=== PATIENT | female | born 1990 | race Caucasian/White ===

== ENCOUNTER 2021-03-28 20:38 | Emergency (ER) | payer OTHER ==
[~2021-03-28] VITALS: Ht 170.2 cm; Wt 61.2 kg
[2021-03-28 21:35] LABS: URINE BILIRUBIN NEGATIVE (Negative); URINE BLOOD 1+ (Negative); URINE CLARITY CLEAR; URINE COLOR YELLOW; URINE GLUCOSE-RANDOM* NEGATIVE (Negative); URINE KETONES TRACE (Negative); URINE LEUKOCYTES-REFLEX NEGATIVE (Negative); URINE NITRITE-REFLEX NEGATIVE (Negative); URINE PROTEIN (DIPSTICK) 2+ (Negative); URINE SPECIFIC GRAVITY >= 1.030 (1.005-1.035); URINE UROBILINOGEN 0.2 E.U./dl (0.2-1.0)
[2021-03-28 21:42] LABS: AMP/METHAMP Negative (Negative); BARBITURATES Negative (Negative); BENZODIAZEPINES Negative (Negative); COCAINE Negative (Negative); METHADONE Negative (Negative); OPIATES Negative (Negative); PCP Negative (Negative)
[2021-03-28 21:43] LABS: SQUAMOUS 0-3 Few /LPF (0-3)
[2021-03-28 21:44] LABS: BACTERIA-REFLEX 1-9 Few /HPF (None Seen); CRYSTALS None Seen /LPF (None Seen); HYALINE CASTS 4-10 Moderate /LPF (None Seen); URINE RBC 3-10 Few /HPF (NONE SEEN); URINE WBC-REFLEX 6-15 Few /HPF (0-5)
[2021-03-28 21:59] LABS: ABSOLUTE NEUTROPHILS 2.2 thou/uL (1.4-8.2); BASOPHILS 0.7 % (0.0-2.0); EOSINOPHILS 0.3 % (0.0-3.0); HEMATOCRIT 34.9 % (37.0-47.0); HEMOGLOBIN 11.4 gm/dL (12.0-15.0); LYMPHOCYTES 15.8 % (24.0-44.0); MCH 29.8 pg (26.0-34.0); MCHC 32.6 g/dL (28.0-37.0); MCV 91.3 fL (80.0-100.0); PLATELET COUNT 160 thou/uL (150-400); POLYS 70.2 % (36.0-66.0); RBC 3.82 mil/uL (4.20-5.00); RDW 20.5 % (10.5-14.5); WBC 3.1 thou/uL (4.0-11.0)
[2021-03-28 22:12] LABS: CALCIUM 9.2 mg/dL (8.5-10.1); CREATININE 0.8 mg/dL (0.6-1.0); POTASSIUM 4.2 mmol/L (3.5-5.1)
[2021-03-28 22:18] VITALS: BP 178/122
[2021-03-28 22:18] LABS: ALBUMIN 4.1 g/dL (3.4-5.0); DIRECT BILIRUBIN 0.1 mg/dL (<0.1-0.2); TOTAL BILIRUBIN 0.9 mg/dL (0.2-1.0); TOTAL PROTEIN 7.5 g/dL (6.4-8.2)
== END 2021-03-28 23:05 | disposition home or self-care (01) ==
LOC: ER 20:38
PROVIDERS: Emergency Medicine
DX: R56.9 Unspecified convulsions (principal); R10.9 Unspecified abdominal pain; R51.9 Headache, unspecified

== ENCOUNTER 2021-04-02 17:05 | Inpatient (IN) | payer OTHER ==
[~2021-04-02] VITALS: Ht 170.2 cm; Wt 64.9 kg
[2021-04-02 17:12] VITALS: BP 133/93
[2021-04-02 17:33] LABS: ABSOLUTE NEUTROPHILS 1.4 thou/uL (1.4-8.2); BASOPHILS 1.6 % (0.0-2.0); EOSINOPHILS 0.5 % (0.0-3.0); HEMATOCRIT 33.3 % (37.0-47.0); HEMOGLOBIN 10.7 gm/dL (12.0-15.0); LYMPHOCYTES 45.6 % (24.0-44.0); MCHC 32.2 g/dL (28.0-37.0); MCV 92.9 fL (80.0-100.0); MONOCYTES 9.1 % (1.0-8.0); PLATELET COUNT 164 thou/uL (150-400); POLYS 43.2 % (36.0-66.0); RBC 3.58 mil/uL (4.20-5.00); RDW 21.7 % (10.5-14.5); WBC 3.3 thou/uL (4.0-11.0)
[2021-04-02 17:43] LABS: CALCIUM 7.9 mg/dL (8.5-10.1); CREATININE 0.8 mg/dL (0.6-1.0); POTASSIUM 3.5 mmol/L (3.5-5.1)
[2021-04-02 17:48] LABS: ALBUMIN 3.6 g/dL (3.4-5.0); TOTAL BILIRUBIN 0.2 mg/dL (0.2-1.0); TOTAL PROTEIN 7.1 g/dL (6.4-8.2)
[2021-04-02 20:02] LABS: SALICYLATE < 2.8 mg/dL (2.8-20.0)
[2021-04-02 23:16] VITALS: BP 109/53
[2021-04-02 23:37] VITALS: BP 143/96
[2021-04-03] VITALS: BP 140/101
[2021-04-03 00:57] LABS: PHOSPHORUS 3.5 mg/dL (2.6-4.7)
[2021-04-03 01:50] LABS: AMP/METHAMP Negative (Negative); BARBITURATES Negative (Negative); BENZODIAZEPINES Negative (Negative); COCAINE Negative (Negative); METHADONE Negative (Negative); OPIATES Negative (Negative); PCP Negative (Negative)
[2021-04-03 03:52] VITALS: BP 98/59
--- NOTE | 2021-04-03 04:17 | NUR ---
ASSUMED CARE OF PATIENT FROM ER. PATIENT REMAINS OBTUNDED, UNRESPONSIVE. ADMISSION COMPLETED WITH LIMITED INFORMATION. CONTINUOUS O2 SAT MONITOR PLACED, PATIENT DESATS OCCASIONALLY. WILL RECOVER WITH STERNAL RUB AND ORAL SUCTIONING. POC GOALS ESTABLISHED, NOT PROGRESSING AT THIS TIME.
[2021-04-03 06:13] LABS: HEMATOCRIT 31.7 % (37.0-47.0); HEMOGLOBIN 10.3 gm/dL (12.0-15.0); MCH 30.6 pg (26.0-34.0); MCHC 32.4 g/dL (28.0-37.0); MCV 94.3 fL (80.0-100.0); RBC 3.36 mil/uL (4.20-5.00); RDW 21.6 % (10.5-14.5); WBC 5.6 thou/uL (4.0-11.0)
[2021-04-03 06:44] LABS: CALCIUM 7.1 mg/dL (8.5-10.1); CREATININE 0.6 mg/dL (0.6-1.0); POTASSIUM 3.4 mmol/L (3.5-5.1)
[2021-04-03 07:03] LABS: FOLIC ACID 6.8 ng/mL (8.6-58.9)
[2021-04-03 07:27] VITALS: BP 111/68
[2021-04-03 10:59] VITALS: BP 144/98
--- NOTE | 2021-04-03 14:02 | NUR ---
INITIAL ASSESSMENT: SW reviewed chart and spoke with nursing and attending physician. Pt was admitted from home due to ETOH intoxication. Pt with ETOH level of 787 upon admission. Pt with hx if consuming vodka. Per chart, pt was found in the yard of a neighbor's home. Pt was recently at [facility] ER on 03/28 for seizures. . SW attempted to meet with pt at bedside earlier today. Pt was lethargic and unable to stay awake for conversation. Psych consulted to evaluate pt. 1:1 sitter placed due to possible SI. SW will follow up with pt at a later time to assess and assist as needed with discharge planning.
[2021-04-03 16:16] VITALS: BP 151/101
--- NOTE | 2021-04-03 16:32 | NUR ---
PT ALERT AND ORIENTED TIMES FOUR. VSS. SR ON TELE. SARAH TO DD. PT DENIES PAIN/SOA. PT TOLERATES MEDS AND MEALS. SITTER AT BEDSIDE FOR POSSIBLE SI ATEMPT. WILL CONTINUE TO MONITOR.
[2021-04-03 18:59] VITALS: BP 162/108
--- NOTE | 2021-04-04 01:24 | NUR ---
PT IS A/0X4. VSS AND NO BREATHING ISSUES. SAID 1:1 CAN BE STOPPED. CALLED [employer]ANER AND UPDATED TO CURRENT SITUATION. HOURLY ROUNDING. SARAH LEW'D PT IS UP TO BATHROOM WITH SBA.
[2021-04-04 04:44] VITALS: BP 178/114
[2021-04-04 06:08] LABS: HEMATOCRIT 31.1 % (37.0-47.0); HEMOGLOBIN 10.2 gm/dL (12.0-15.0); MCH 30.5 pg (26.0-34.0); MCHC 32.9 g/dL (28.0-37.0); MCV 92.9 fL (80.0-100.0); RBC 3.35 mil/uL (4.20-5.00); RDW 20.7 % (10.5-14.5); WBC 3.6 thou/uL (4.0-11.0)
[2021-04-04 06:21] LABS: CALCIUM 8.4 mg/dL (8.5-10.1); CREATININE 0.7 mg/dL (0.6-1.0); POTASSIUM 3.4 mmol/L (3.5-5.1)
[2021-04-04 07:13] VITALS: BP 178/122
[2021-04-04 10:35] VITALS: BP 173/100
--- NOTE | 2021-04-04 14:25 | NUR ---
SONIDO reviewed chart and spoke with nursing and attending physician. Pt is progressing towards goals for discharge. 1:1 sitter discontinued after psych consult. Received consult to provide pt with resources for outpatient follow up. SONIDO met with pt at bedside to discuss discharge plans. Pt states that she has completed the Medicaid application with [facility] [employer] earlier today. SW provided pt with info regarding [facility], [facility] and [facility] list of ETOH treatment options. Pt states she is familiar with [facility] and is aware with the process of the assessment and admission process. SW encouraged pt to contact her choice of facility to start working on the assessment. Pt is unsure when she will be going to a facility, as she wants to see about her Medicaid application status. SONIDO explained that it will take weeks/months for the Medicaid application to be approved, if pt meets criteria. SONIDO encouraged pt to call and discuss financial options with the facility of her choice. Provided pt with SW contact info to assist with referrals. Pt verbalized understanding and states she feels motivated to start working on sobriety. Pt normally lives at home and is independent with ADLs. Pt states her parents live in [place], [place]. SONIDO is following to assist as needed with discharge planning.
[2021-04-04 15:22] VITALS: BP 174/115
[2021-04-04 19:12] VITALS: BP 187/135
[2021-04-04 22:20] VITALS: BP 178/124
[2021-04-05 04:06] VITALS: BP 164/114
--- NOTE | 2021-04-05 05:11 | NUR ---
PT A/0X4 AND AD JOSIE. PT TOOK SHOWER INDEPENDENTLY. CIWA IN PLACE WITH TREMORS BEING SEEN AND PT STATING SHE IS HAVING HOT FLASHES. PO ATIVAN GIVEN. BP STILL EVELVATED, RECEIVED ORDERS FOR PRN HYDRALAZINE Q6. DID NOT PROVIDE MUCH IMPROVEMENT. PT WAITING ON POSSIBLE PLACEMENT FOR INPATIENT ETOH.
[2021-04-05 07:20] VITALS: BP 152/127
[2021-04-05 11:20] VITALS: BP 152/102
[2021-04-05 12:11] VITALS: BP 152/102
[2021-04-05] MEDS ORDERED: VITAMIN B-1100 M2 PO (12:18)
[2021-04-05] MEDS ORDERED: NORVASC10 MG PO (12:18)
[2021-04-05] MEDS ORDERED: PEPCID20 MG PO (12:18)
[2021-04-05 12:29] VITALS: BP 152/102
--- NOTE | 2021-04-05 13:09 | NUR ---
D/C ORDERS IN, GAVE PO BP MEDICATION. D/C INSTRUCTION AND NEW MED INFORMATION GIVEN TO PT, STATED UNDERSTANDING. INFORMATION ABOUT ALCOHOL CESSATON GIVEN TO PT. ALL BELONGINGS WITH PT. WILL TAKE PT DOWN VIA WHEELCHAIR.
[2021-04-05 13:14] VITALS: BP 152/109
--- NOTE | 2021-04-05 13:21 | NUR ---
PT BLOOD PRESSURE 152/109, AFTER BP MED WAS GIVEN. PT INSISTED BP IS ALWAYS HIGH AND INSISTED ON GOING HOME. ORDER FOR HOME BP MEDS GIVENB TO PT
--- NOTE | 2021-04-05 13:26 | NUR ---
DISCHARGE NOTE: SONIDO reviewed chart and spoke with nursing and attending physician. Pt started on new BP med today and is medically stable to discharge home today. Case also discussed with psych. SONIDO met with pt at bedside to discuss discharge plan. Pt states she has all the info that SONIDO provided yesterday and she will review and make calls/appt for assessment/intake. Pt will have transportation home when ready for discharge. Additional contact info for ETOH resources placed in pt's discharge summary. Pt provided with prescription discount card and Health Resource Guide. No additional SW needs identified at this time, but is available to assist should needs arise.
== END 2021-04-05 13:49 | disposition home or self-care (01) | DRG 897 ==
LOC: ER 17:05 → EROBS 23:07 → 3W 23:07
PROVIDERS: Nurse Practitioner Family; Physician Assistant; ADMIT Hospitalist; ATTEND Hospitalist
DX: F10.129 Alcohol abuse with intoxication, unspecified (principal); E86.0 Dehydration; S05.00XA Injury of conjunctiva and corneal abrasion without foreign body, unspecified eye, initial encounter; F10.139 Alcohol abuse with withdrawal, unspecified; X58.XXXA Exposure to other specified factors, initial encounter; Y93.89 Activity, other specified; Y92.89 Other specified places as the place of occurrence of the external cause; Y99.8 Other external cause status
CPT/HCPCS: 10879

== ENCOUNTER 2021-04-09 01:28 | Inpatient (IN) | payer OTHER ==
[~2021-04-09] VITALS: Ht 177.8 cm; Wt 49.9 kg
[~2021-04-09 01:28] MED LIST: NORVASC10 MG PO; PEPCID20 MG PO; VITAMIN B-1100 M2 PO
[2021-04-09 01:30] VITALS: BP 143/96
[2021-04-09 02:27] LABS: URINE BILIRUBIN NEGATIVE (Negative); URINE BLOOD NEGATIVE (Negative); URINE CLARITY CLEAR; URINE COLOR YELLOW; URINE GLUCOSE-RANDOM* NEGATIVE (Negative); URINE KETONES NEGATIVE (Negative); URINE LEUKOCYTES-REFLEX TRACE (Negative); URINE PROTEIN (DIPSTICK) NEGATIVE (Negative); URINE SPECIFIC GRAVITY <= 1.005 (1.005-1.035); URINE UROBILINOGEN 0.2 E.U./dl (0.2-1.0)
[2021-04-09 02:30] LABS: URINE NITRITE-REFLEX POSITIVE (Negative)
[2021-04-09 02:34] LABS: AMP/METHAMP Negative (Negative); BARBITURATES Negative (Negative); BENZODIAZEPINES Negative (Negative); COCAINE Negative (Negative); METHADONE Negative (Negative); OPIATES Negative (Negative); PCP Negative (Negative)
[2021-04-09 02:51] LABS: HEMATOCRIT 32.2 % (37.0-47.0); HEMOGLOBIN 10.7 gm/dL (12.0-15.0); MCH 30.7 pg (26.0-34.0); MCHC 33.2 g/dL (28.0-37.0); MCV 92.5 fL (80.0-100.0); RBC 3.48 mil/uL (4.20-5.00); RDW 20.7 % (10.5-14.5); WBC 3.4 thou/uL (4.0-11.0)
[2021-04-09 03:03] LABS: CREATININE 0.9 mg/dL (0.6-1.0); POTASSIUM 3.6 mmol/L (3.5-5.1)
[2021-04-09 03:08] LABS: ALBUMIN 3.8 g/dL (3.4-5.0); MAGNESIUM 2.4 mg/dL (1.8-2.4); TOTAL BILIRUBIN 0.2 mg/dL (0.2-1.0); TOTAL PROTEIN 7.3 g/dL (6.4-8.2)
[2021-04-09 03:37] LABS: BACTERIA-REFLEX >30 Many /HPF (None Seen); CASTS None Seen /LPF (None Seen); CRYSTALS None Seen /LPF (None Seen); MUCUS 0-3 Light strn/LPF (None Seen); SQUAMOUS 0-3 Few /LPF (0-3); URINE RBC 1-2 Rare /HPF (NONE SEEN); URINE WBC-REFLEX 0-5 Rare /HPF (0-5)
[2021-04-09 06:51] VITALS: BP 108/62
[2021-04-09 08:43] VITALS: BP 108/73
--- NOTE | 2021-04-09 13:09 | NUR ---
PATIENT ADMITTED TO ROOM 351. PATIENT REPORTS TO THIS RN "I NEED TO BE AT WORK AT 11. I DON'T HAVE SHOES, CAN I HAVE SLIPPERS?" THIS RN VERIFIED PATIENT WAS A/O X4 AND UNDERSTOOD THAT SHE WAS ADMITTED TO THE HOSPITAL. SHE VERBALIZED UNDERSTANDING. THIS RN CALLED DR. FREY AND INFORMED HER OF PATIENT'S CONCERNS. DR. FREY CAME TO THE ROOM AND DISCUSSED WITH PATIENT RISKS OF PATIENT LEAVING THE HOSPITAL AMA WITHOUT TREATMENT. PATIENT CONSENTED TO LEAVE AMA WITH ALL BELONGINGS. IV REMOVED FROM LEFT FA. VSS. PATIENT LEFT AMA TO PRIVATE VEHICLE.
--- NOTE | 2021-04-09 14:59 | NUR ---
SW received consult. Pt was admitted due to ETOH intoxication. Pt's ETOH level was 572 in the ER. Pt was recently discharged home on 04/05 with information for ETOH treatment options. Pt left AMA this morning prior to SW visit. Case closed.
== END 2021-04-09 10:35 | disposition left against medical advice (07) | DRG 690 ==
LOC: ER → EROBS 04:20 → 3W 09:21
PROVIDERS: Emergency Medicine; ADMIT Hospitalist; ATTEND Hospitalist
DX: N39.0 Urinary tract infection, site not specified (principal); F10.129 Alcohol abuse with intoxication, unspecified; Z53.29 Procedure and treatment not carried out because of patient's decision for other reasons
CPT/HCPCS: 10879

== ENCOUNTER 2021-04-10 10:23 | Inpatient (IN) | payer OTHER ==
[~2021-04-10] VITALS: Ht 170.2 cm; Wt 62.4 kg
--- NOTE | ~2021-04-10 | EMS ---
[address] [address] EMS Patient Care Report Name: SURY POLANCO Room #: REG YAMIL [facility]illas#: [id number] Admission: 04/10/21 Attend Phys: Discharge: Date of : 90 Report #: [id number] THIS REPORT FOR: //name// Report Transmitted: 04/10/2021 09:55 EMS Care Summary [place], [place]/[facility] Incident [id number] @ 04/10/2021 09:55 Incident Location [address] [place] [address] Patient SURY POLANCO Female, 30 Years 1990 Patient Address [address] [place] [address] Patient History Alcohol Abuse, Patient Allergies No known allergies, Patient Medications None Reported, Chief Complaint UNCONSCIOUS Disposition Transported No Lights/[place] Dispatch Reason Unknown Problem/Person Down Transported To [facility] Narrative BYSTANDERS STATE THEY FOUND PT ON STREET UNRESPONSIVE. PT IS SITTING CROSS LEGGED WITH HER HEAD FORWARD DOWN ON THE GROUND. PT DOES NOT RESPOND TO VERBAL. PT DOES NOT APPEAR INJURED OR IN RESP DISTRESS. PT PICKED UP AND PLACED ON THE COT. PT RESPONDS TO STERNAL RUB WITH GRIMACE. [facility] [address] [place] [address] EMS Patient Care Report Name: SURY POLANCO Room #: REG Y[facility]#: [id number] Admission: 04/10/21 Attend Phys: Discharge: Date of : 90 Report #: [id number] PT HAS HISTORY OF ALCOHOL USE ACCORDING TO PREVIOUS REPORTS. NO CHANGE AFTER NARCAN IV. NO PROBLEMS EN ROUTE. Initial Vitals @10:04P: 108,R: 12,BP: 130/88,GCS: 8,Glucose: 126,SpO2: 95,Revised Trauma: 10, @10:13P: 98,R: 12,BP: 124/83,Pain: 0/10,GCS: 8,CO: 4,SpO2: 93,Revised Trauma: 10, @10:18P: 98,R: 12,Pain: 0/10,GCS: 8,SpO2: 99, Assessments @10:03MENTAL:Unresponsive,SKIN:HEENT:Eyes: Left Pupil: 3-mm,Eyes: Right: Constricted,Eyes: Left: Constricted,Eyes: Right Pupil: 3-mm,Head/Face: No Abnormalities,Neck/Airway: No Abnormalities,LUNG SOUNDS:General: No Abnormalities,Left Upper: No Abnormalities,Right Upper: No Abnormalities,Left Lower: No Abnormalities,Right Lower: No Abnormalities,ABDOMEN:General: No Abnormalities,Left Upper: No Abnormalities,Right Upper: No Abnormalities,Left Lower: No Abnormalities,Right Lower: No Abnormalities,PELVIS//GI:No Abnormalities,EXTREMITIES:Left Arm: No Abnormalities,Right Arm: No Abnormalities,Left Leg: No Abnormalities,Right Leg: No Abnormalities,PULSE:NEURO:No Abnormalities, Impression Altered Mental Status Procedures @10:10Saline Lock 0cc (18 ga) Site: Forearm-LeftResponse: UnchangedSucceeded@10:15Narcan - 0.5 Milligrams (mg) - Intravenous (IV)Response: Unchanged@10:20Narcan - 0.5 Milligrams (mg) - Intravenous (IV)Response: Unchanged@10:16Oxygen FlowRate: 4 Device: Nasal Cannula (NC) Response: ImprovedSucceeded Timeline 09:55,Call Received 09:55,Dispatch Notified 09:55,Dispatched 09:56,En Route 10:01,On Scene 10:02,At Patient 10:04,BP: 130/88 M,PULSE: 108,RR: 12 R,SPO2: 95 Ox,ETCO2: ,B,PAIN: ,GCS: 8, 10:10,Saline Lock 0cc 18 ga Site: Forearm-Left,Response: UnchangedSucceeded, 10:11,Depart Scene 10:13,BP: 124/83 M,PULSE: 98,RR: 12 R,SPO2: 93 Ox,ETCO2: ,BG: ,PAIN: 0,GCS: 8, 10:15,Narcan - 0.5 Milligrams (mg) - Intravenous (IV),Response: Unchanged 10:16,Oxygen FlowRate: 4 Device: Nasal Cannula (NC) Response: ImprovedSucceeded, 10:18,BP: / M,PULSE: 98,RR: 12 R,SPO2: 99 Ox,ETCO2: ,BG: ,PAIN: 0,GCS: 8, [address] [address] EMS Patient Care Report Name: SHERRI,SURY [facility] Room #: REG YAMIL [facility]#: [id number] Admission: 04/10/21 Attend Phys: Discharge: Date of : 90 Report #: [id number] 10:19,At Destination 10:20,Narcan - 0.5 Milligrams (mg) - Intravenous (IV),Response: Unchanged 10:36,Call Closed Disclaimer v1.1 Copyright 2020 [employer] This EMS Care Summary contains data elements from the applicable legal record (which may be displayed differently). It is designed to provide pertinent information for the following purposes: continuity of care, clinical quality, and state data reporting. The complete legal record is available to ED staff and administrators of the receiving hospital in [employer] Patient Tracker. All data is provided "as is."
[2021-04-10 10:25] VITALS: BP 123/78
[2021-04-10 10:44] LABS: BE(vivo) -2.3 mmol/L (-2 to +3); HCO3 23.3 mmol/L (22.0-26.0); PO2 95.9 mmHg (80.0-100.0); pH 7.351 (7.360-7.450)
[2021-04-10 11:01] LABS: ABSOLUTE NEUTROPHILS 2.9 thou/uL (1.4-8.2); BASOPHILS 1.3 % (0.0-2.0); EOSINOPHILS 0.4 % (0.0-3.0); HEMATOCRIT 30.2 % (37.0-47.0); HEMOGLOBIN 9.8 gm/dL (12.0-15.0); LYMPHOCYTES 24.1 % (24.0-44.0); MCH 30.5 pg (26.0-34.0); MCHC 32.6 g/dL (28.0-37.0); MCV 93.6 fL (80.0-100.0); MONOCYTES 9.6 % (1.0-8.0); PLATELET COUNT 182 thou/uL (150-400); POLYS 64.6 % (36.0-66.0); RBC 3.23 mil/uL (4.20-5.00); RDW 21.3 % (10.5-14.5); WBC 4.4 thou/uL (4.0-11.0)
[2021-04-10 11:20] LABS: ANION GAP 13 mmol/L (7-16); BUN 7 mg/dL (7-18); CALCIUM 7.7 mg/dL (8.5-10.1); CHLORIDE 105 mmol/L (98-107); CO2 26 mmol/L (21-32); CREATININE 0.7 mg/dL (0.6-1.0); GLUCOSE 107 mg/dL (74-106); POTASSIUM 3.3 mmol/L (3.5-5.1); SODIUM 144 mmol/L (136-145)
[2021-04-10 11:25] LABS: URINE BILIRUBIN NEGATIVE (Negative); URINE BLOOD NEGATIVE (Negative); URINE CLARITY CLEAR; URINE COLOR YELLOW; URINE GLUCOSE-RANDOM* NEGATIVE (Negative); URINE KETONES NEGATIVE (Negative); URINE LEUKOCYTES-REFLEX 1+ (Negative); URINE NITRITE-REFLEX POSITIVE (Negative); URINE PROTEIN (DIPSTICK) NEGATIVE (Negative); URINE UROBILINOGEN 0.2 E.U./dl (0.2-1.0)
[2021-04-10 11:32] LABS: ALBUMIN 3.3 g/dL (3.4-5.0); AMYLASE 21 U/L (25-115); DIRECT BILIRUBIN < 0.1 mg/dL (<0.1-0.2); LIPASE 95 U/L (73-393); MAGNESIUM 2.1 mg/dL (1.8-2.4); PHOSPHORUS 2.6 mg/dL (2.5-4.9); SGOT 44 U/L (15-37); SGPT 42 U/L (30-65); TOTAL BILIRUBIN 0.2 mg/dL (0.2-1.0); TOTAL PROTEIN 6.5 g/dL (6.4-8.2); TROPONIN-I <0.06 ng/mL (<0.06)
[2021-04-10 11:40] LABS: AMP/METHAMP Negative (Negative); BARBITURATES Negative (Negative); BENZODIAZEPINES Negative (Negative); COCAINE Negative (Negative); METHADONE Negative (Negative); OPIATES Negative (Negative); PCP Negative (Negative)
[2021-04-10 11:43] LABS: SALICYLATE < 2.8 mg/dL (2.8-20.0)
[2021-04-10 11:51] LABS: SQUAMOUS 4-10 Moderate /LPF (0-3)
[2021-04-10 11:52] LABS: BACTERIA-REFLEX >30 Many /HPF (None Seen); CASTS None Seen /LPF (None Seen); CRYSTALS None Seen /LPF (None Seen); URINE RBC None Seen /HPF (NONE SEEN)
[2021-04-10 11:53] LABS: URINE WBC-REFLEX 0-5 Rare /HPF (0-5)
--- NOTE | 2021-04-10 12:10 | EKG ---
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
[2021-04-10 13:14] LABS: ANISOCYTOSIS 1+
[2021-04-10 13:57] VITALS: BP 131/88
[2021-04-10 14:29] LABS: % SATURATION 9 % (20-39); IRON 28 ug/dL (50-170); TIBC 316 ug/dL (250-450)
[2021-04-10 15:00] VITALS: BP 149/103
[2021-04-10 15:01] VITALS: BP 114/75
[2021-04-10 15:15] VITALS: BP 151/112
[2021-04-10 15:30] VITALS: BP 141/103
--- NOTE | 2021-04-10 15:42 | NUR ---
PATIENT ARRIVED TO ICU ROOM 245 FROM ER AT 1500. ONE IV IN PLACE, NS INFUSING PER ORDERS. PATIENT ORIENTED TO ROOM AND ALL QUESTIONS ANSWERED. PATIENT BELONGINGS IN ROOM INCLUDE; CELL PHONE, WALLET, SHIRT, PANTS AND SHOES. PATIENT ORIENTED X4 AND ABLE TO AMBULATE AROUND ROOM INDEPENDENTLY. AT 1544 PATIENT CALLED NURSE IN TO ROOM AND STATED THAT SHE IS REQUIRED TO GO TO WORK AT 1700. EDUCATED PROVIDED AND DISCUSSED RISK OF LEAVING THE HOSPITAL WITH THE PATIENT. SHE IS AGREEABLE TO STAY AT THIS TIME.
== END 2021-04-10 16:15 | disposition left against medical advice (07) | DRG 641 ==
LOC: ER 10:23 → EROBS 13:23 → ICU 14:50
PROVIDERS: Emergency Medicine; Nurse Practitioner; ADMIT Internal Medicine; ATTEND Internal Medicine
DX: E86.0 Dehydration (principal); N39.0 Urinary tract infection, site not specified; E87.2 Acidosis; F10.129 Alcohol abuse with intoxication, unspecified; E87.6 Hypokalemia; R40.0 Somnolence; R56.9 Unspecified convulsions; D64.9 Anemia, unspecified; E53.8 Deficiency of other specified B group vitamins; Y90.8 Blood alcohol level of 240 mg/100 ml or more; Z53.21 Procedure and treatment not carried out due to patient leaving prior to being seen by health care provider; Z79.899 Other long term (current) drug therapy
CPT/HCPCS: 10196

== ENCOUNTER 2021-04-10 20:32 | Emergency (ER) | payer OTHER ==
[~2021-04-10] VITALS: Ht 167.6 cm; Wt 64.5 kg
[2021-04-10 21:00] LABS: HEMATOCRIT 30.2 % (37.0-47.0); HEMOGLOBIN 9.8 gm/dL (12.0-15.0); MCH 30.4 pg (26.0-34.0); MCHC 32.5 g/dL (28.0-37.0); MCV 93.8 fL (80.0-100.0); RBC 3.22 mil/uL (4.20-5.00); RDW 21.1 % (10.5-14.5); WBC 3.6 thou/uL (4.0-11.0)
[2021-04-10 21:08] LABS: ANION GAP 8 mmol/L (7-16); BUN 7 mg/dL (7-18); CALCIUM 7.8 mg/dL (8.5-10.1); CHLORIDE 109 mmol/L (98-107); CO2 29 mmol/L (21-32); CREATININE 0.8 mg/dL (0.6-1.0); GLUCOSE 95 mg/dL (74-106); POTASSIUM 3.4 mmol/L (3.5-5.1); SODIUM 146 mmol/L (136-145)
[2021-04-10 21:14] LABS: ALBUMIN 3.4 g/dL (3.4-5.0); SALICYLATE < 2.8 mg/dL (2.8-20.0); SGOT 45 U/L (15-37); SGPT 42 U/L (14-59); TOTAL BILIRUBIN 0.2 mg/dL (0.2-1.0); TOTAL PROTEIN 6.6 g/dL (6.4-8.2)
[2021-04-10 22:19] LABS: URINE BILIRUBIN NEGATIVE (Negative); URINE BLOOD NEGATIVE (Negative); URINE CLARITY CLEAR; URINE COLOR YELLOW; URINE GLUCOSE-RANDOM* NEGATIVE (Negative); URINE KETONES NEGATIVE (Negative); URINE NITRITE-REFLEX NEGATIVE (Negative); URINE PROTEIN (DIPSTICK) NEGATIVE (Negative); URINE UROBILINOGEN 0.2 E.U./dl (0.2-1.0)
[2021-04-10 22:22] LABS: URINE LEUKOCYTES-REFLEX 2+ (Negative)
[2021-04-10 22:31] LABS: AMP/METHAMP Negative (Negative); BARBITURATES Negative (Negative); BENZODIAZEPINES Negative (Negative); COCAINE Negative (Negative); METHADONE Negative (Negative); OPIATES Negative (Negative); PCP Negative (Negative)
[2021-04-10 22:43] LABS: CASTS None Seen /LPF (None Seen); CRYSTALS None Seen /LPF (None Seen); MUCUS 0-3 Light strn/LPF (None Seen); SQUAMOUS 4-10 Moderate /LPF (0-3); URINE RBC 3-10 Few /HPF (NONE SEEN); WBC CLUMPS Few (None Seen)
[2021-04-11 10:36] VITALS: BP 136/84
== END 2021-04-11 10:38 | disposition home or self-care (01) ==
LOC: ER 20:32
PROVIDERS: Emergency Medicine
DX: F10.129 Alcohol abuse with intoxication, unspecified (principal); I10 Essential (primary) hypertension; Z85.43 Personal history of malignant neoplasm of ovary; Y90.8 Blood alcohol level of 240 mg/100 ml or more

== ENCOUNTER 2021-04-11 19:04 | Inpatient (IN) | payer MEDICAID ==
[~2021-04-11] VITALS: Ht 172.7 cm; Wt 63.5 kg
[2021-04-11 19:06] VITALS: BP 133/92
[2021-04-11 19:30] LABS: ABSOLUTE NEUTROPHILS 2.2 thou/uL (1.4-8.2); BASOPHILS 1.8 % (0.0-2.0); EOSINOPHILS 0.1 % (0.0-3.0); HEMATOCRIT 34.3 % (37.0-47.0); HEMOGLOBIN 11.2 gm/dL (12.0-15.0); LYMPHOCYTES 39.2 % (24.0-44.0); MCHC 32.8 g/dL (28.0-37.0); MCV 94.6 fL (80.0-100.0); MONOCYTES 5.2 % (1.0-8.0); PLATELET COUNT 182 thou/uL (150-400); POLYS 53.7 % (36.0-66.0); RBC 3.63 mil/uL (4.20-5.00); WBC 4.1 thou/uL (4.0-11.0)
[2021-04-11 19:32] LABS: ANION GAP 12 mmol/L (7-16); BUN 6 mg/dL (7-18); CHLORIDE 108 mmol/L (98-107); CO2 25 mmol/L (21-32); CREATININE 0.7 mg/dL (0.6-1.0); GLUCOSE 88 mg/dL (74-106); POTASSIUM 4.3 mmol/L (3.5-5.1); SODIUM 145 mmol/L (136-145)
[2021-04-11 19:34] LABS: AMP/METHAMP Negative (Negative); BARBITURATES Negative (Negative); BENZODIAZEPINES Negative (Negative); COCAINE Negative (Negative); METHADONE Negative (Negative); OPIATES Negative (Negative); PCP Negative (Negative)
[2021-04-11 19:37] VITALS: BP 124/87
[2021-04-11 19:39] LABS: ALBUMIN 3.4 g/dL (3.4-5.0); DIRECT BILIRUBIN < 0.1 mg/dL (<0.1-0.2); SALICYLATE < 2.8 mg/dL (2.8-20.0); SGOT 81 U/L (15-37); SGPT 50 U/L (14-59); TOTAL BILIRUBIN 0.3 mg/dL (0.2-1.0); TOTAL PROTEIN 6.8 g/dL (6.4-8.2)
[2021-04-12 06:45] VITALS: BP 131/92
--- NOTE | 2021-04-12 07:05 | EKG ---
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: SALVADOR : 1990 Requested By: Polo Diop Order Number: [id number] MD: Adams Liang Measurements Intervals [place] Rate: 87 P: 74 [place]: 171 QRS: 47 QRSD: 93 T: 57 QT: 405 QTc: 488 Interpretive Statements Sinus rhythm Probable left atrial enlargement Borderline prolonged QT interval Compared to ECG 04/10/2021 10:42:00 No significant changes Electronically Signed On 04-12-2021 7:05:40 CDT by Adams Liang [email or web address] <ELECTRONICALLY SIGNED> By: Adams Liang MD, [facility] 04/12/21704 39 39 Adams Liang MD, FACC /EPI
[2021-04-12 07:24] VITALS: BP 116/78
--- NOTE | 2021-04-12 07:25 | NUR ---
BK (MOTHER) HARLAN (FATHER) [phone]
[2021-04-12 11:13] VITALS: BP 135/90
[2021-04-12 11:28] VITALS: BP 135/90
--- NOTE | 2021-04-12 15:03 | NUR ---
INITIAL ASSESSMENT: Received consult. SONIDO reviewed chart and spoke with nursing and attending physician. Pt was admitted for ETOH intoxication. Pt was admitted and left AMA on 04/09 and 04/10. Pt's ETOH was 610 today. Psych consulted. Pt is uninsured. SONIDO met with pt at bedside. Pt's boyfriend also present at bedside. Pt gave consent for SW to discuss info in front of her boyfriend. SONIDO provided pt with resources for ETOH treatment options ([facility] listing, [employer], [employer] and [facility] [place]). Health Resource Guide also provided. Pt does not have a PCP. Prior to admission, pt has been independent with ADLs. Pt states she will review the info. Contact for SONIDO also provided. Plan is for pt to discharge home when medically stable. Pt to contact ETOH treatment facility of her choice to intiate admission assessment. SONIDO is available to assist as needed with discharge planning.
[2021-04-12 15:19] VITALS: BP 146/99
--- NOTE | 2021-04-12 17:36 | NUR ---
assumed care of pt at 0700. pt alert and oriented, pleasant. ativan po given prn per ciwa protocol. up w/ stand by assist. good appetite. socializing with family at bedisde. sinus tach on telemetry, no events. wcm.
[2021-04-12 20:35] VITALS: BP 170/114
--- NOTE | 2021-04-12 22:25 | NUR ---
WHEN PT GETS UP TO WALK INTO RESTROOM HEART RATE INCREASES TO THE 150'S. SHE DENIES DIZZINESS WITH THIS SYMPTOM.
[2021-04-13] VITALS (8 sets, daily range): BP systolic 154–179; BP diastolic 103–130
--- NOTE | 2021-04-13 04:48 | NUR ---
resting quietly tonight. she has needed the ativan to control withdrawl symptoms. she is oriented and has a steady gait. continues on iv fluids. CIWA scores recorded.
--- NOTE | 2021-04-13 06:08 | NUR ---
spoke with Band Tumbler regarding elevated blood pressures tonight. p is keenly alert and oriented and is able to take po. norvasc 10 po daily ordered. per her home med list.
--- NOTE | 2021-04-13 17:13 | NUR ---
UP TO BATHROOM INDEPENDENTLY, DENIES ANY SYMPTOMS OF ALCOGOL WITHDRAWAL. BP CONTINUES TO BE HIGH, HYDRALAZINE GIVEN. PT DENIES ANY NEEDS OTHER NEEDS AT MOMENT. WILL CONTINUE.
--- NOTE | 2021-04-14 01:15 | NUR ---
awakens quickly and she gets very anxious. heart rate elevated (150) when she first awakens. reassured pt, responds positively to reorienting and soothing.
[2021-04-14 04:30] VITALS: BP 146/105
--- NOTE | 2021-04-14 06:06 | NUR ---
heart rate increases when up to the restroom. she has been resting most of the night. continue to give lorazepam q 4 hours as needed for agitiation/ alcohol withdrawl. she is quiet and needs to be encouraged to talk. her boyfriend visited christen at . he stated that he has been sober for 60 days and is encouraging heidy mccormick
[2021-04-14 07:18] VITALS: BP 141/103
[2021-04-14 11:31] VITALS: BP 138/102
[2021-04-14] MEDS ORDERED: VITAMIN B-1100 M2 PO (12:39)
[2021-04-14] MEDS ORDERED: CLONIDINE HCL0.3 M3 PO (12:39)
[2021-04-14] MEDS ORDERED: FOLIC ACID1 MG PO (12:39)
[2021-04-14 13:19] VITALS: BP 135/90
== END 2021-04-14 13:45 | disposition home or self-care (01) | DRG 897 ==
LOC: ER 19:04 → 3W 21:19 → EROBS 21:19 → 3W 04-12 07:40
PROVIDERS: Nurse Practitioner; ADMIT Hospitalist; ATTEND Hospitalist
DX: F10.239 Alcohol dependence with withdrawal, unspecified (principal); E87.2 Acidosis; G31.2 Degeneration of nervous system due to alcohol; F10.229 Alcohol dependence with intoxication, unspecified; I10 Essential (primary) hypertension; Y90.8 Blood alcohol level of 240 mg/100 ml or more; Z85.43 Personal history of malignant neoplasm of ovary; Z91.19 Patient's noncompliance with other medical treatment and regimen
CPT/HCPCS: 10779

== ENCOUNTER 2021-05-29 13:32 | Inpatient (IN) | payer OTHER ==
[~2021-05-29] VITALS: Ht 170.2 cm; Wt 60.8 kg
--- NOTE | ~2021-05-29 | EMS ---
[place] [address] EMS Patient Care Report Name: SURY POLANCO Room #: 362-P ADM IN M.R.#: [id number] Admission: 05/29/21 Attend Phys: Justin Espino MD Discharge: Date of : 90 Report #: [id number] THIS REPORT FOR: //name// Report Transmitted: 06/03/2021 09:42 EMS Care Summary [place], [place]/[facility] Incident [id number] @ 05/29/2021 12:46 Incident Location [address] [place] [address] Patient SURY POLANCO Female, 24 Years 1996-10-04 Patient Address [address] [place] [address] Patient History Alcohol Abuse, Patient Allergies No known allergies, Patient Medications None Reported, Chief Complaint UNRESPONSIVE EXEPT TP PAIN Disposition Transported No Lights/[place] Dispatch Reason Unknown Problem/Person Down Transported To [facility] Narrative PT FOUND ASLEEP IN BED RESPONSIVE TO PAIN. PT'S FAMILY AND BOYFREIND STATE THAT PT HAS BEEN ON A 9 DAY VORA. AFTER D-25 PT WOULD SIT UP AND LOOK AROUND BUT WOULDN'T ANSWER QUESTIONS. NO OTHER [place] [address] EMS Patient Care Report Name: SURY POLANCO Room #: 362-P ADM IN [place]#: [id number] Admission: 05/29/21 Attend Phys: Justin Espino MD Discharge: Date of : 90 Report #: [id number] Initial Vitals @13:17P: 97,R: 16,BP: 136/90,GCS: 8,Revised Trauma: 10, @13:09P: 110,R: 16,BP: 142/102,Pain: 0/10,GCS: 8,Glucose: 67,SpO2: 97,Revised Trauma: 10,PR Suspected: false Assessments @13:04MENTAL:Other,SKIN:No Abnormalities,HEENT:Head/Face: No Abnormalities,Eyes: No Abnormalities,Neck/Airway: No Abnormalities,LUNG SOUNDS:General: No Abnormalities,Left Upper: No Abnormalities,Right Upper: No Abnormalities,Left Lower: No Abnormalities,Right Lower: No Abnormalities,ABDOMEN:General: No Abnormalities,Left Upper: No Abnormalities,Right Upper: No Abnormalities,Left Lower: No Abnormalities,Right Lower: No Abnormalities,PELVIS//GI:No Abnormalities,EXTREMITIES:Left Arm: No Abnormalities,Right Arm: No Abnormalities,Left Leg: No Abnormalities,Right Leg: No Abnormalities,PULSE:NEURO:No Abnormalities, Impression Altered Mental Status Procedures @13:03ALS AssessmentResponse: UnchangedSucceeded@13:16Saline Lock 10cc (20 ga) Site: Antecubital-LeftResponse: UnchangedSucceeded@13:18Dextrose 10% - 250 Milliliters (ml) - Intravenous (IV)Response: Improved@13:153-Lead ECGResponse: UnchangedSucceeded Timeline 12:45,Call Received 12:45,Dispatch Notified 12:46,Dispatched 12:46,En Route 13:00,On Scene 13:03,At Patient 13:03,ALS Assessment,Response: UnchangedSucceeded, 13:09,BP: 142/102 M,PULSE: 110,RR: 16 R,SPO2: 97 Ox,ETCO2: ,B,PAIN: 0,GCS: 8, 13:15,3-Lead ECG,Response: UnchangedSucceeded, 13:16,Saline Lock 10cc 20 ga Site: Antecubital-Left,Response: UnchangedSucceeded, 13:17,BP: 136/90 M,PULSE: 97,RR: 16 R,SPO2: Ox,ETCO2: ,BG: ,PAIN: ,GCS: 8, 13:18,Dextrose 10% - 250 Milliliters (ml) - Intravenous (IV),Response: Improved 13:25,Depart Scene 13:31,At Destination 13:47,Call [place] [address] EMS Patient Care Report Name: SURY POLANCO Room #: 362-P ADM IN M.R.#: [id number] Admission: 05/29/21 Attend Phys: Justin Espino MD Discharge: Date of : 90 Report #: [id number] v1.1 Copyright 2020 [employer] This EMS Care Summary contains data elements from the applicable legal record (which may be displayed differently). It is designed to provide pertinent information for the following purposes: continuity of care, clinical quality, and state data reporting. The complete legal record is available to ED staff and administrators of the receiving hospital in [facility]'s Patient Tracker. All data is provided "as is."
[~2021-05-29 13:32] MED LIST changes: +CLONIDINE HCL0.3 M3 PO; +FOLIC ACID1 MG PO
[2021-05-29 13:33] VITALS: BP 147/97
[2021-05-29 13:55] LABS: HEMATOCRIT 36.9 % (37.0-47.0); MCH 30.6 pg (26.0-34.0); MCHC 32.5 g/dL (28.0-37.0); MCV 94.1 fL (80.0-100.0); PLATELET COUNT 100 thou/uL (150-400); RBC 3.92 mil/uL (4.20-5.00); RDW 21.1 % (10.5-14.5)
[2021-05-29 14:02] LABS: CALCIUM 7.7 mg/dL (8.5-10.1); CREATININE 0.9 mg/dL (0.6-1.0); POTASSIUM 3.9 mmol/L (3.5-5.1)
[2021-05-29 14:08] LABS: ALBUMIN 4.1 g/dL (3.4-5.0); TOTAL BILIRUBIN 0.8 mg/dL (0.2-1.0); TOTAL PROTEIN 7.3 g/dL (6.4-8.2)
[2021-05-29 14:11] LABS: WBC 1.9 thou/uL (4.0-11.0)
[2021-05-29 15:17] LABS: ANISOCYTOSIS 2+; LARGE PLATELETS FEW
--- NOTE | 2021-05-29 21:10 | NUR ---
PT CHANGED INTO DIFFERENT CLOTHING PER POLICE. POLICE GIVEN PATIENT CLOTHES.
[2021-05-30 05:34] LABS: HEMATOCRIT 33.2 % (37.0-47.0); HEMOGLOBIN 11.1 gm/dL (12.0-15.0); MCH 31.1 pg (26.0-34.0); MCHC 33.3 g/dL (28.0-37.0); MCV 93.3 fL (80.0-100.0); RBC 3.56 mil/uL (4.20-5.00)
[2021-05-30 06:18] LABS: WBC 1.9 thou/uL (4.0-11.0)
[2021-05-30 06:26] LABS: CALCIUM 7.9 mg/dL (8.5-10.1); CREATININE 0.8 mg/dL (0.6-1.0); POTASSIUM 3.8 mmol/L (3.5-5.1)
[2021-05-30 13:08] LABS: GLYCOHEMOGLOBIN (HGB A1C) 4.6 % (4.8-5.6)
--- NOTE | 2021-05-30 19:57 | NUR ---
TALKED WITH TOOL REPAIRER, ADMIT ORDER CHANGED TO MS TELE
[2021-05-30 21:32] VITALS: BP 160/108
[2021-05-30 22:15] VITALS: BP 171/119
--- NOTE | 2021-05-31 00:36 | NUR ---
PT ADMIT FROM ER, WELL KNOWN TO UNIT. PT A/0X4, AD JOSIE AND ON ROOM AIR. PT ADMISSION COMPLETED, CARE PLAN UPDATED AND INTERVENTIONS IN PLACE. SENT KRYPTO TEXT TO ELECTRICAL CHECKOUT MECHANIC ABOUT ADDRESSING PT ELEVATED BP. AWAITING ORDERS. PT IS BEING PASSED OFF TO MOHINDER Meek RN.
[2021-05-31 02:40] LABS: HEMATOCRIT 31.2 % (37.0-47.0); HEMOGLOBIN 10.5 gm/dL (12.0-15.0); MCH 31.2 pg (26.0-34.0); MCHC 33.7 g/dL (28.0-37.0); MCV 92.6 fL (80.0-100.0); RBC 3.37 mil/uL (4.20-5.00); RDW 20.4 % (10.5-14.5)
[2021-05-31 02:43] VITALS: BP 152/111
[2021-05-31 02:54] LABS: WBC 1.9 thou/uL (4.0-11.0)
[2021-05-31 02:58] LABS: ALBUMIN 3.6 g/dL (3.4-5.0); DIRECT BILIRUBIN 0.3 mg/dL (<0.1-0.2); TOTAL BILIRUBIN 1.1 mg/dL (0.2-1.0); TOTAL PROTEIN 6.2 g/dL (6.4-8.2)
[2021-05-31 05:08] VITALS: BP 146/107
--- NOTE | 2021-05-31 06:39 | NUR ---
ADMIT: RECIEVD CARE OF THIS PT FROM ED , UPON ARRIVAL TO UNIT , PT ALERT AND ORIENTED X4 , ANSEWRS QUESTIONS FOR DATA BASE , ASSESSMENT COMPLETED, DENIES PAIN , GAIT STEADY. HEART RATE INCREASE TO 140- 150 WHEN UP TO BATHROOM , ONCE PT LIE DOWN IN BED , HEART RATE RETURN NSR 90. BP ELEVATED ELECTRIC STOP INSTALLER KARSTEN CALLED , BP MEDICATION , RESTARTED FROM HOME MEDIATION. IV IN LEFT FOREARM INTACT AND INFUSING WELL. CALL LIGHT IN REACH.
[2021-05-31 08:02] VITALS: BP 141/105
--- NOTE | 2021-05-31 09:33 | NUR ---
Nutrition: Assessed due to consult received stating ETOH, poor intake and elevated lipase. Pt reported poor intake one week prior to admission, had been "on a barker". Eating very well now on regular diet, > 90% breakfast observed. Pt unaware of weight loss/UBW. On thiamine, folic acid, B12, . Did encourage pt to avoid high fat foods w/ pancreatitis, will add to diet order. Pt open to ETOH rehab at D/C. With interventions in place, consider low risk
[2021-05-31 16:27] VITALS: BP 132/103
[2021-05-31 16:38] VITALS: BP 132/103
--- NOTE | 2021-05-31 16:39 | NUR ---
INITIAL ASSESSMENT: Received consult. SONIDO reviewed chart and spoke with nursing and attending physician. Pt was admitted due to ETOH intoxication. EOTH 603 upon arrival in ER. Pt with hx of ETOH abuse and has had multiple ER visits and hospitalizations. Pt has left AMA in the past. Psych consulted. Pt is interested in treatment options. SONIDO placed several calls to pt's room. No answer. SONIDO placed contact info for ETOH treatment options in pt's discharge summary, should pt be discharged over the weekend. SONIDO also faxed ETOH resources to the nurses station to provide to pt for review. SONIDO is following to assist as needed with discharge planning.
--- NOTE | 2021-05-31 17:26 | NUR ---
assumed care of pt at 0700. CIWA ranging 12-15. able to answer orientation questions but clearly hallucinating at times. asking many questions about the status of "charlotte" thinking he is in the hospital. wanting to leave AMA to go to [facility] - informed that she cannot come back. after talking with family, pt is largely willing to stay, but continues to be restless, trying to wander out of room looking for charlotte, requiring redirection. family kept informed on patient status, worried about her hallucinations. facetime'd with family on ipad due to no visitors. pulled out IV access without reason. up ad neeta this morning, but placed on fall precautions after she stumbled on the door but catching herself and causing mild abrasion on arm. pt frustrated with fall precautions, but largely cooperative. wcm.
[2021-05-31 20:17] VITALS: BP 144/102
[2021-06-01 05:00] VITALS: BP 150/100
[2021-06-01 06:25] LABS: ALBUMIN 3.7 g/dL (3.4-5.0); CALCIUM 8.7 mg/dL (8.5-10.1); CREATININE 0.6 mg/dL (0.6-1.0); POTASSIUM 3.1 mmol/L (3.5-5.1); TOTAL BILIRUBIN 0.7 mg/dL (0.2-1.0); TOTAL PROTEIN 6.4 g/dL (6.4-8.2)
--- NOTE | 2021-06-01 06:32 | NUR ---
PT CIWA NOW 18. ATIVAN GIVEN, X1 HALIDOL AND PRN SEROQUEL. PT COMBATIVE AND NON REDIRECTABLE, REMOVING TELE AND BECOMING UNSAFE TO STAFF AND HERSELF. RECEIVED ORDER FOR RESTRAINTS. PT HAVING VISUAL HALLUCINATIONS. SMITH PLACED. FOLLOW POC WITH IVF. PT SHOULD NOT BE ALLOWED TO LEAVE AMA IN THIS STATE OF MIND. SPOKE TO PT'S MOTHER AND INFORMED HER OF PT STATUS AND SITUATION. HOURLY ROUNDING.
[2021-06-01 07:10] VITALS: BP 153/108
[2021-06-01 15:20] VITALS: BP 134/99
--- NOTE | 2021-06-01 19:24 | NUR ---
ASSUMED PATIENT CARE AT 0700. ALERT, AGITAED ON NGOC RESTRAINT BUT STILL ABLE TO OUT OF BED. CIW X13. MOVE TO 362 CLOSE TO NURSE STATION. WILL KEEP MONITOR.
[2021-06-01 19:43] VITALS: BP 145/111
[2021-06-02 05:55] VITALS: BP 131/99
--- NOTE | 2021-06-02 06:22 | NUR ---
PT STILL IN RESTRAINTS DUE TO POTENTIAL HARM WITH FALLS, REMOVING OF MEDICAL DEVICES AND COUNTLESS IV ACCESS SIGHTS. CIWA SCORES AVERAGE 13-17. ATIVAN GIVEN ALONG WITH PRN SEROQUEL. SMITH IN PLACE. PT CAN STILL REMOVE RESTRAINTS AND ATTEMPT TO GET OUT OF BED. PT WAS MOVED TO [facility] TO BE CLOSER TO NURSE STATION. POC WITH IVF GTT. HOURLY ROUNDING.
[2021-06-02 06:39] LABS: CALCIUM 8.4 mg/dL (8.5-10.1); CREATININE 0.5 mg/dL (0.6-1.0); POTASSIUM 3.3 mmol/L (3.5-5.1)
[2021-06-02 08:41] VITALS: BP 148/112
[2021-06-02 09:38] LABS: ALBUMIN 3.7 g/dL (3.4-5.0); DIRECT BILIRUBIN 0.3 mg/dL (<0.1-0.2); TOTAL BILIRUBIN 0.7 mg/dL (0.2-1.0); TOTAL PROTEIN 6.3 g/dL (6.4-8.2)
--- NOTE | 2021-06-02 12:34 | NUR ---
PT UP FOR LUNCH, SELF FEED. DENIES PAIN AT THIS TIME. MILD AGITATION, CONFUSION AND TREMORS CONTINUE.
[2021-06-02 12:41] LABS: INR 1.01
[2021-06-02 16:38] VITALS: BP 114/83
[2021-06-02 20:08] VITALS: BP 123/92
[2021-06-03 04:43] VITALS: BP 120/83
--- NOTE | 2021-06-03 04:51 | NUR ---
Bilateral soft wrist restraints dc'd at 1930. She has been calm and cooperative with periods of being anxious. Able to answer orientation questions. She slept well during the night. When she woke up , solitario out with balloon inflated. She stated she's able to get up to the bathroom so she took it out. Amulated with assist to bathroom to void. She also woke up really hungry and requested for snacks. Bed alarm on and she remembered to use call light the next time she needed to go to the bathroom. She requested prn med this am stating she's starting to feel anxious. She heard a man's voice and thought it is her fiance. Informed her that it is the plumber supervisor she's hearing at the nurses station. She has been pleasant and cooperative. Her mom called last night to get an update on pt and stated she will be picking her up when she's ready to be discharged from here. Message left to SW to communicate mom's intent of taking her home upon discharge from the hospital. Making some progress towards care plan goals.
[2021-06-03 07:22] VITALS: BP 142/98
[2021-06-03 07:45] LABS: EOSINOPHILS 1.9 % (0.0-3.0); HEMATOCRIT 32.9 % (37.0-47.0); HEMOGLOBIN 11.1 gm/dL (12.0-15.0); LYMPHOCYTES 20.3 % (24.0-44.0); MCH 31.9 pg (26.0-34.0); MCHC 33.8 g/dL (28.0-37.0); MCV 94.3 fL (80.0-100.0); MONOCYTES 10.1 % (1.0-8.0); PLATELET COUNT 133 thou/uL (150-400); POLYS 66.7 % (36.0-66.0); RBC 3.48 mil/uL (4.20-5.00); RDW 21.4 % (10.5-14.5); WBC 4.5 thou/uL (4.0-11.0)
[2021-06-03 08:08] LABS: ALBUMIN 3.5 g/dL (3.4-5.0); CALCIUM 8.8 mg/dL (8.5-10.1); CREATININE 0.6 mg/dL (0.6-1.0); POTASSIUM 3.8 mmol/L (3.5-5.1); TOTAL BILIRUBIN 0.5 mg/dL (0.2-1.0); TOTAL PROTEIN 6.8 g/dL (6.4-8.2)
[2021-06-03 08:36] LABS: INR 0.94; PROTIME 10.3 Seconds (10.5-12.1)
[2021-06-03 12:26] VITALS: BP 132/103
--- NOTE | 2021-06-03 14:01 | NUR ---
DISCHARGE NOTE: SW reviewed chart and spoke with nursing and attending physician. Pt was placed in bilateral wrist restraints over the weekend due to agitation. Restraints removed yesterday. Pt is medically stable for discharge today. SW spoke with pt via phone. Introduced role of SW. Pt is alert/orientated. Nursing provided pt with ETOH treatment resources and Health Resource Guide for review. SW discussed with pt via phone. Pt states she already has the same packet of info at home. Pt reports that she will review the info on the drive home to her parents' home in [place]. Pt denies having any questions or needing additional info. No additional SW needs identified at this time, but is available to assist should needs arise.
[2021-06-04 13:09] LABS: HEMOGLOBIN 10.6 g/dL (11.1-15.9)
[2021-06-04 17:07] LABS: ANA INTERPRETATION Negative (())
== END 2021-06-03 14:16 | disposition home or self-care (01) | DRG 438 ==
LOC: EDBD 13:32 → ER 13:32 → EROBS 17:57 → 3W 05-30 21:30
PROVIDERS: Family Medicine; Internal Medicine Gastroenterology; Internal Medicine Hematology & Oncology; Nurse Practitioner; Nurse Practitioner Family; ADMIT Internal Medicine; ATTEND Internal Medicine
DX: K85.20 Alcohol induced acute pancreatitis without necrosis or infection (principal); G93.41 Metabolic encephalopathy; F10.239 Alcohol dependence with withdrawal, unspecified; D61.818 Other pancytopenia; R74.01 Elevation of levels of liver transaminase levels; I10 Essential (primary) hypertension; D72.819 Decreased white blood cell count, unspecified; R73.9 Hyperglycemia, unspecified; F10.229 Alcohol dependence with intoxication, unspecified; E87.6 Hypokalemia; Z20.822 Contact with and (suspected) exposure to COVID-19; Z91.14 Patient's other noncompliance with medication regimen; Z85.43 Personal history of malignant neoplasm of ovary; Z71.41 Alcohol abuse counseling and surveillance of alcoholic; Z92.21 Personal history of antineoplastic chemotherapy
CPT/HCPCS: 10879

== ENCOUNTER 2021-06-18 23:38 | Emergency (ER) | payer OTHER ==
[~2021-06-18] VITALS: Ht 172.7 cm; Wt 59.0 kg
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
[2021-06-19 00:29] LABS: ABSOLUTE NEUTROPHILS 3.6 thou/uL (1.4-8.2); BASOPHILS 1.1 % (0.0-2.0); EOSINOPHILS 0.7 % (0.0-3.0); HEMATOCRIT 34.6 % (37.0-47.0); HEMOGLOBIN 11.2 gm/dL (12.0-15.0); LYMPHOCYTES 28.7 % (24.0-44.0); MCH 30.8 pg (26.0-34.0); MCHC 32.5 g/dL (28.0-37.0); MCV 94.7 fL (80.0-100.0); MONOCYTES 4.8 % (1.0-8.0); PLATELET COUNT 365 thou/uL (150-400); POLYS 64.7 % (36.0-66.0); RBC 3.65 mil/uL (4.20-5.00); RDW 20.4 % (10.5-14.5); WBC 5.5 thou/uL (4.0-11.0)
[2021-06-19 00:43] LABS: CREATININE 0.9 mg/dL (0.6-1.0); POTASSIUM 3.6 mmol/L (3.5-5.1)
[2021-06-19 00:49] LABS: ALBUMIN 3.8 g/dL (3.4-5.0); TOTAL BILIRUBIN 0.3 mg/dL (0.2-1.0); TOTAL PROTEIN 7.1 g/dL (6.4-8.2)
[2021-06-19 05:39] VITALS: BP 134/90
--- NOTE | 2021-06-19 12:36 | EKG ---
[address] [place] [address] ELECTROCARDIOGRAM REPORT Name: SURY POLANCO [id number] Admission: 06/18/21 Attend Phys: Discharge: 06/19/21 Date of : [birth year] Report #: [id number] [facility] ED Test Date: 2021-06-19 Test Time: 00:12:17 Pat Name: SURY POLANCO Department: Room: Gender: F [employer]: : 1990 Requested By: Antwan Lo Order Number: [id number] MD: Adams Liang Measurements Intervals [place] Rate: 92 P: 70 [place]: 166 QRS: 46 QRSD: 93 T: 50 QT: 374 QTc: 463 Interpretive Statements Sinus rhythm Baseline wander in lead(s) I,II,aVR,V3 Compared to ECG 04/11/2021 19:40:17 No significant changes Electronically Signed On 06-19-2021 12:36:02 CDT by Adams Liang [email or web address] <ELECTRONICALLY SIGNED> By: Adams Liang MD, [facility] 06/19/21 1236 Adams Liang MD, FACC /EPI
== END 2021-06-19 05:45 | disposition home or self-care (01) ==
LOC: ER 23:38
PROVIDERS: Emergency Medicine
DX: F10.129 Alcohol abuse with intoxication, unspecified (principal); R41.82 Altered mental status, unspecified; S80.212A Abrasion, left knee, initial encounter; S80.211A Abrasion, right knee, initial encounter; X58.XXXA Exposure to other specified factors, initial encounter; Y93.89 Activity, other specified; Y92.89 Other specified places as the place of occurrence of the external cause; Y99.8 Other external cause status

== ENCOUNTER 2021-07-09 13:14 | Emergency (ER) | payer OTHER ==
[~2021-07-09] VITALS: Ht 167.6 cm; Wt 59.0 kg
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
[2021-07-09 16:23] VITALS: BP 139/96
== END 2021-07-09 16:24 | disposition home or self-care (01) ==
LOC: ER 13:14
DX: S40.022A Contusion of left upper arm, initial encounter (principal); S00.93XA Contusion of unspecified part of head, initial encounter; F10.10 Alcohol abuse, uncomplicated; Y90.9 Presence of alcohol in blood, level not specified; I10 Essential (primary) hypertension; Y04.8XXA Assault by other bodily force, initial encounter; Y93.89 Activity, other specified; Y92.89 Other specified places as the place of occurrence of the external cause; Y99.8 Other external cause status